=== PATIENT | female | born 1940 | race Caucasian/White ===

== ENCOUNTER 2018-10-30 15:28 | Emergency (ER) | payer MEDICARE, BC ==
--- NOTE | 2018-10-30 16:07 | ER Document Report ---
ED Medical Screen (RME) - General Chief Complaint: Flu Symptoms Stated Complaint: COUGH,CONGESTION Time Seen by Provider: 10/30/18 16:02 Primary Care Provider: JOSE MENDOZA MD [Primary Care Provider] - Follow up as needed Mode of Arrival: Ambulatory Information source: Patient Notes: This is a 78-year-old female with a history of diabetes, hypertension, coronary artery disease (CABG), possibly COPD. She has had cough, congestion and shortness of breath for the past 3 days. She was seen at [facility] and diagnosed with influenza. Because of concerns for pneumonia she was referred to the emergency room. She is noted to be hypertensive in triage. Her oxygen saturation is 94%. TRAVEL OUTSIDE OF THE [place] IN LAST 30 DAYS: No - Related Data Allergies/Adverse Reactions: prednisolone acetate [From Pred Forte] Allergy (Verified 10/30/18 15:30) REDDNESS OF EYE oxycodone HCl [From Percocet] Adverse Reaction (Verified 10/30/18 15:30) ITCHING Past Medical History - Past Medical History Cardiac Medical History: Reports: Hx Hypercholesterolemia, Hx Hypertension Denies: Hx Heart Attack Pulmonary Medical History: Denies: Hx Asthma, Hx Tuberculosis Neurological Medical History: Denies: Hx Cerebrovascular Accident, Hx Seizures Endocrine Medical History: Reports: Hx Diabetes Mellitus Type 2 Renal/ Medical History: Reports: Hx Kidney Stones GI Medical History: Denies: Hx Hepatitis, Hx Hiatal Hernia, Hx Ulcer Psychiatric Medical History: Reports: Hx Depression Infectious Medical History: Denies: Hx Hepatitis Past Surgical History: Reports: Hx Gynecologic Surgery - D/C, Hx Kidney (Renal Surgery) - stones, Hx Open Heart Surgery - triple bypass 08/26. Denies: Hx Mastectomy, Hx Pacemaker - Immunizations Hx Diphtheria, Pertussis, Tetanus Vaccination: - unk Physical Exam - Vital signs Vitals: Temp Pulse Resp BP Pulse Ox 98.4 F 77 18 184/56 H 94 10/30/18 15:36 10/30/18 15:36 10/30/18 15:36 10/30/18 15:36 10/30/18 15:36 Course - Vital Signs Vital signs: Temp Pulse Resp BP Pulse Ox 98.4 F 77 18 184/56 H 94 10/30/18 15:36 10/30/18 15:36 10/30/18 15:36 10/30/18 15:36 10/30/18 15:36 Doctor's Discharge - Discharge Referrals: JOSE MENDOZA MD [Primary Care Provider] - Follow up as needed
[2018-10-30] MEDS ORDERED: IPRATROPIUM/ALBUTEROL 0.5-2.5 MG/3 ML AMPUL NEB ONE ×2 (16:08→17:39)
[2018-10-30 16:56] LABS: ABSOLUTE BASOPHILS # (AUTO) 0.1 10^3/uL (0.0-0.2); ABSOLUTE EOSINOPHILS # (AUTO) 1.1 10^3/uL (0.0-0.6); ABSOLUTE MONOCYTES (AUTO) 0.6 10^3/uL (0.1-1.4); ABSOLUTE NEUT (AUTO) 6.9 10^3/uL (1.7-8.2); BASOPHILS % (AUTO) 1.5 % (0-2); EOSINOPHILS % (AUTO) 11.8 % (0-6); HEMATOCRIT 38.2 % (36.0-47.0); HEMOGLOBIN 12.8 g/dL (12.0-15.5); LYMPHOCYTES % (AUTO) 10.2 % (13-45); MEAN CORPUSCULAR HEMOGLOBIN 30.5 pg (27.0-33.4); MEAN CORPUSCULAR HGB CONC 33.6 g/dL (32.0-36.0); MEAN CORPUSCULAR VOLUME 91 fl (80-97); MONOCYTES % (AUTO) 5.8 % (3-13); RED BLOOD COUNT 4.21 10^6/uL (3.72-5.28); RED CELL DISTRIBUTION WIDTH 15.9 % (11.5-14.0); SEGMENTED NEUTROPHILS % (AUTO) 70.7 % (42-78); TOTAL CELLS COUNTED % (AUTO) 100 %; WHITE BLOOD COUNT 9.7 10^3/uL (4.0-10.5)
[2018-10-30 17:21] LABS: PLATELET COUNT 228 10^3/uL (150-450)
--- NOTE | 2018-10-30 17:26 | RADIOLOGY REPORT (SQ) ---
EXAM DESCRIPTION: CHEST 2 VIEWS COMPLETED DATE/TIME: 10/30/2018 5:05 pm REASON FOR STUDY: cough, sob COMPARISON: 11/06/2013 TECHNIQUE: Frontal and lateral radiographic views of the chest acquired. NUMBER OF VIEWS: Two view. LIMITATIONS: None. FINDINGS: LUNGS AND PLEURA: No pneumothorax. No consolidation or pleural effusion. Mild chronic lef t basilar scarring. MEDIASTINUM AND HILAR STRUCTURES: Stable. HEART AND VASCULAR STRUCTURES: Stable. BONES: No acute findings. HARDWARE: CABG. OTHER: No other significant finding. IMPRESSION: NO ACUTE FINDINGS. TECHNICAL DOCUMENTATION: JOB ID: [id number] [place]-72 2010 [employer]- All Rights Reserved Reading location - IP/workstation name: [employer]
--- NOTE | 2018-10-30 17:43 | ER Document Report ---
ED Flu Like - General Chief Complaint: Flu Symptoms Stated Complaint: COUGH,CONGESTION Time Seen by Provider: 10/30/18 16:02 Primary Care Provider: JOSE MENDOZA MD [Primary Care Provider] - Follow up in 3-5 days Mode of Arrival: Ambulatory TRAVEL OUTSIDE OF THE [place] IN LAST 30 DAYS: No - HPI Notes: Patient is a 78-year-old female that presents to the emergency department for chief complaint of influenza. Patient was in an urgent care facility today and was diagnosed with influenza A. They referred her to the ER for concern that she may have underlying pneumonia as well. Patient reports 4 days of cough and upper respiratory infection. She states everyone in her family has the flu as well. She denies taking her temperature at home but has felt sweats and chills. She reports a nonproductive cough but denies any dyspnea and shortness of breath. Patient denies any nausea, vomiting, abdominal pain and chest pain. She did not get an influenza vaccine this year. Past Medical History: COPD, diabetes, hypertension, CAD, CKD Past Surgical History: CABG Social History: Reviewed in chart Family History: Reviewed and noncontributory for presenting illness Allergies: Reviewed, see documented allergy list. REVIEW OF SYSTEMS: CONSTITUTIONAL : No fever chills diaphoresis EENT: No vision changes congestion No sore throat CARDIOVASCULAR: No chest pain No palpitations RESPIRATORY: No shortness of breath cough No difficulty breathing GASTROINTESTINAL: No abdominal pain No nausea No vomiting No diarrhea GENITOURINARY: No dysuria No hematuria No difficulty urinating MUSCULOSKELETAL: No back pain No leg pain No arm pain SKIN: No rashes No lesions LYMPHATIC: No swollen, enlarged glands. NEUROLOGICAL: No lightheadedness No headache No weakness No paresthesias PSYCHIATRIC: No anxiety No depression PHYSICAL EXAMINATION: Vital signs reviewed, nursing noted reviewed. GENERAL: Well-appearing, well-nourished and in no acute distress. HEAD: Atraumatic, normocephalic. EYES: Eyes appear normal, extraocular movements intact, sclera anicteric, conjunctiva are normal. ENT: nares patent, oropharynx clear without exudates. Moist mucous membranes. NECK: Normal range of motion, supple without lymphadenopathy LUNGS: Breath sounds have end expiratory wheezing bilaterally. No accessory muscle use or respiratory distress HEART: Regular rate and rhythm without murmurs ABDOMEN: Soft, nontender, normoactive bowel sounds. No rebound, guarding, or rigidity. No masses appreciated. EXTREMITIES: Nontender, good range of motion, no pitting or edema. NEUROLOGICAL: No focal neurological deficits. Moves all extremities spontaneously Motor and sensory grossly intact on exam. PSYCH: Normal mood, normal affect. SKIN: Warm, Dry, normal turgor, no rashes or lesions noted on exposed skin - Related Data Allergies/Adverse Reactions: prednisolone acetate [From Pred Forte] Allergy (Verified 10/30/18 15:30) REDDNESS OF EYE oxycodone HCl [From Percocet] Adverse Reaction (Verified 10/30/18 15:30) ITCHING Past Medical History - General Information source: Patient - Social History Smoking Status: Former Smoker Chew tobacco use (# tins/day): No Frequency of alcohol use: None Drug Abuse: None Family History: CAD, CVA Patient has suicidal ideation: No Patient has homicidal ideation: No - Past Medical History Cardiac Medical History: Reports: Hx Hypercholesterolemia, Hx Hypertension Denies: Hx Heart Attack Pulmonary Medical History: Denies: Hx Asthma, Hx Tuberculosis Neurological Medical History: Denies: Hx Cerebrovascular Accident, Hx Seizures Endocrine Medical History: Reports: Hx Diabetes Mellitus Type 2 Renal/ Medical History: Reports: Hx Kidney Stones. Denies: Hx Peritoneal Dialysis GI Medical History: Denies: Hx Hepatitis, Hx Hiatal Hernia, Hx Ulcer Psychiatric Medical History: Reports: Hx Depression Infectious Medical History: Denies: Hx Hepatitis Past Surgical History: Reports: Hx Gynecologic Surgery - D/C, Hx Kidney (Renal Surgery) - stones, Hx Open Heart Surgery - triple bypass 08/26. Denies: Hx Mastectomy, Hx Pacemaker - Immunizations Hx Diphtheria, Pertussis, Tetanus Vaccination: - unk Hx Pneumococcal Vaccination: 09/14/07 Physical Exam - Vital signs Vitals: Temp Pulse Resp BP Pulse Ox 98.4 F 77 18 184/56 H 94 10/30/18 15:36 10/30/18 15:36 10/30/18 15:36 10/30/18 15:36 10/30/18 15:36 Course - Re-evaluation Re-evalutation: 10/30/18 17:41 Vitals reviewed. Nursing notes reviewed. Patient is well-appearing and in no acute respiratory distress. She is oxygenating at 94% on room air. Patient has a diagnosis of COPD and family is telling me she is noncompliant with her home medications. She believes she has an albuterol inhaler but is not sure how old it is. She is supposed to be on Spiriva which she does not take. Patient's symptoms started 4 days ago when she is outside the window for Tamiflu. Patient will be given DuoNeb in the ED for her wheezing. X-ray shows no underlying pneumonia. She has no leukocytosis or sepsis. Currently awaiting BMP results. Laboratory 10/30/18 10/30/18 16:39 16:39 WBC 9.7 RBC 4.21 Hgb 12.8 Hct 38.2 MCV 91 MCH 30.5 MCHC 33.6 RDW 15.9 H Plt Count 228 Seg Neutrophils % 70.7 Lymphocytes % 10.2 L Monocytes % 5.8 Eosinophils % 11.8 H Basophils % 1.5 Absolute Neutrophils 6.9 Absolute Lymphocytes 1.0 Absolute Monocytes 0.6 Absolute Eosinophils 1.1 H Absolute Basophils 0.1 Sodium Cancelled Potassium Cancelled Chloride Cancelled Carbon Dioxide Cancelled Anion Gap Cancelled BUN Cancelled Creatinine Cancelled Est GFR ( Amer) Cancelled Est GFR (Non-Af Amer) Cancelled Glucose Cancelled Calcium Cancelled Total Bilirubin Cancelled Direct Bilirubin Cancelled Neonat Total Bilirubin Cancelled Neonat Direct Bilirubin Cancelled Neonat Indirect Bili Cancelled AST Cancelled ALT Cancelled Alkaline Phosphatase Cancelled Total Protein Cancelled Albumin Cancelled Chest X-Ray 10/30/18 16:07 IMPRESSION: NO ACUTE FINDINGS. 10/30/18 19:10 BMP shows mild elevation of LFTs but is otherwise unremarkable. Patient has remained hemodynamically stable. She did have symptomatic improvement. Patient will follow closely with her primary care doctor and is stable at discharge. Laboratory 10/30/18 10/30/18 10/30/18 16:39 16:39 18:00 WBC 9.7 RBC 4.21 Hgb 12.8 Hct 38.2 MCV 91 MCH 30.5 MCHC 33.6 RDW 15.9 H Plt Count 228 Seg Neutrophils % 70.7 Lymphocytes % 10.2 L Monocytes % 5.8 Eosinophils % 11.8 H Basophils % 1.5 Absolute Neutrophils 6.9 Absolute Lymphocytes 1.0 Absolute Monocytes 0.6 Absolute Eosinophils 1.1 H Absolute Basophils 0.1 Sodium Cancelled 146.3 H Potassium Cancelled 4.3 Chloride Cancelled 107 Carbon Dioxide Cancelled 27 Anion Gap Cancelled 12 BUN Cancelled 25 H Creatinine Cancelled 1.04 Est GFR ( Amer) Cancelled > 60 Est GFR (Non-Af Amer) Cancelled 51 L Glucose Cancelled 221 H Calcium Cancelled 10.0 Total Bilirubin Cancelled 0.5 Direct Bilirubin Cancelled 0.3 Neonat Total Bilirubin Cancelled Not Reportable Neonat Direct Bilirubin Cancelled Not Reportable Neonat Indirect Bili Cancelled Not Reportable AST Cancelled 77 H ALT Cancelled 74 H Alkaline Phosphatase Cancelled 95 Total Protein Cancelled 7.3 Albumin Cancelled 4.3 - Vital Signs Vital signs: Temp Pulse Resp BP Pulse Ox 98.0 F 72 16 154/75 H 96 10/30/18 18:57 10/30/18 18:57 10/30/18 18:57 10/30/18 18:57 10/30/18 18:57 - Laboratory Result Diagrams: 10/30/18 16:39 10/30/18 18:00 Laboratory results interpreted by me: 10/30/18 10/30/18 16:39 18:00 RDW 15.9 H Lymphocytes % 10.2 L Eosinophils % 11.8 H Absolute Eosinophils 1.1 H Sodium 146.3 H BUN 25 H Est GFR (Non-Af Amer) 51 L Glucose 221 H AST 77 H ALT 74 H Discharge - Discharge Clinical Impression: Influenza A Condition: Stable Disposition: HOME, SELF-CARE Instructions: Influenza ([facility]) [id number] Additional Instructions: Please return to the emergency department if you have any worsening, or concern of your symptoms. Please return to the emergency department if you develop chest pain, difficulty breathing, severe abdominal pain, or ongoing vomiting. Please follow-up with your primary care physician in 2-3 days and any other recommended physicians. If prescribed, take all medications as directed. If you have any questions or concerns do not hesitate to return the emergency department for evaluation. Use your albuterol inhaler with the spacer, 2 puffs every 4 hours as needed for cough Prescriptions: Albuterol Sulfate [Proair HFA Inhalation Aerosol 8.5 gm MDI] 2 puff IH Q4H PRN #1 mdi PRN Reason: Inhaler, Assist Devices [Space Chamber Plus] 1 each MC Q4 #1 spacer Referrals: JOSE MENDOZA MD [Primary Care Provider] - Follow up in 3-5 days
[2018-10-30 18:28] LABS: ALANINE AMINOTRANSFERASE 74 U/L (9-52); ALBUMIN 4.3 g/dL (3.5-5.0); ALKALINE PHOSPHATASE 95 U/L (38-126); ANION GAP 12 (5-19); ASPARTATE AMINO TRANSFERASE 77 U/L (14-36); BILIRUBIN,DIRECT 0.3 mg/dL (0.0-0.4); BILIRUBIN,TOTAL 0.5 mg/dL (0.2-1.3); BLOOD UREA NITROGEN 25 mg/dL (7-20); CARBON DIOXIDE 27 mmol/L (22-30); CHLORIDE 107 mmol/L (98-107); GLUCOSE 221 mg/dL (75-110); POTASSIUM 4.3 mmol/L (3.6-5.0); SODIUM 146.3 mmol/L (137-145); TOTAL PROTEIN 7.3 g/dL (6.3-8.2)
[2018-10-30 19:04] VITALS: BP 154/75
== END 2018-10-30 19:34 | disposition home or self-care (01) ==
LOC: ER 15:28
DX: J10.1 Influenza due to other identified influenza virus with other respiratory manifestations (principal); R05 Cough; R06.00 Dyspnea, unspecified; J44.9 Chronic obstructive pulmonary disease, unspecified; E11.9 Type 2 diabetes mellitus without complications; I10 Essential (primary) hypertension; I25.10 Atherosclerotic heart disease of native coronary artery without angina pectoris; N18.9 Chronic kidney disease, unspecified; Z87.891 Personal history of nicotine dependence
CPT/HCPCS: 94640 ×2; 99284; 36415; 85025; 80053; 71046; A9270; J7620

== ENCOUNTER 2018-11-13 11:25 | Emergency (ER) | payer MEDICARE, BC ==
[2018-11-13] MEDS ORDERED: NORMAL SALINE 1000 ML 1,000 ML IV ONE (11:40)
--- NOTE | 2018-11-13 11:41 | ER Document Report ---
ED Medical Screen (RME) - General Chief Complaint: Nausea Stated Complaint: BLOOD PRESSURE PROBLEM Time Seen by Provider: 11/13/18 11:39 Primary Care Provider: JOSE MENDOZA MD [Primary Care Provider] - Follow up as needed Mode of Arrival: Wheelchair Information source: Patient, Relative TRAVEL OUTSIDE OF THE [place] IN LAST 30 DAYS: No - HPI Patient complains to provider of: low BP, dizziness, nausea Onset: Yesterday - pt. with h/o HTN with c/o low BP, dizzinerss, nausea and weakness for the past day - Related Data Allergies/Adverse Reactions: prednisolone acetate [From Pred Forte] Allergy (Verified 10/30/18 15:30) REDDNESS OF EYE oxycodone HCl [From Percocet] Adverse Reaction (Verified 10/30/18 15:30) ITCHING Past Medical History - Past Medical History Cardiac Medical History: Reports: Hx Hypercholesterolemia, Hx Hypertension Denies: Hx Heart Attack Pulmonary Medical History: Denies: Hx Asthma, Hx Tuberculosis Neurological Medical History: Denies: Hx Cerebrovascular Accident, Hx Seizures Endocrine Medical History: Reports: Hx Diabetes Mellitus Type 2 Renal/ Medical History: Reports: Hx Kidney Stones. Denies: Hx Peritoneal Dialysis GI Medical History: Denies: Hx Hepatitis, Hx Hiatal Hernia, Hx Ulcer Psychiatric Medical History: Reports: Hx Depression Infectious Medical History: Denies: Hx Hepatitis Past Surgical History: Reports: Hx Gynecologic Surgery - D/C, Hx Kidney (Renal Surgery) - stones, Hx Open Heart Surgery - triple bypass 08/26. Denies: Hx Mastectomy, Hx Pacemaker - Immunizations Hx Diphtheria, Pertussis, Tetanus Vaccination: - unk Physical Exam - Vital signs Vitals: Temp Pulse Resp BP Pulse Ox 97.8 F 62 19 118/44 L 96 11/13/18 11:34 11/13/18 11:34 11/13/18 11:34 11/13/18 11:34 11/13/18 11:34 Course - Vital Signs Vital signs: Temp Pulse Resp BP Pulse Ox 97.8 F 62 19 118/44 L 96 11/13/18 11:34 11/13/18 11:34 11/13/18 11:34 11/13/18 11:34 11/13/18 11:34 Doctor's Discharge - Discharge Referrals: JOSE MENDOZA MD [Primary Care Provider] - Follow up as needed
[2018-11-13 12:40] LABS: ABSOLUTE BASOPHILS # (AUTO) 0.1 10^3/uL (0.0-0.2); ABSOLUTE EOSINOPHILS # (AUTO) 0.9 10^3/uL (0.0-0.6); ABSOLUTE LYMPHOCYTES (AUTO) 1.7 10^3/uL (0.5-4.7); ABSOLUTE MONOCYTES (AUTO) 0.4 10^3/uL (0.1-1.4); ABSOLUTE NEUT (AUTO) 5.2 10^3/uL (1.7-8.2); BASOPHILS % (AUTO) 1.2 % (0-2); EOSINOPHILS % (AUTO) 11.2 % (0-6); HEMATOCRIT 37.5 % (36.0-47.0); HEMOGLOBIN 12.7 g/dL (12.0-15.5); LYMPHOCYTES % (AUTO) 20.5 % (13-45); MEAN CORPUSCULAR HEMOGLOBIN 29.7 pg (27.0-33.4); MEAN CORPUSCULAR HGB CONC 33.7 g/dL (32.0-36.0); MEAN CORPUSCULAR VOLUME 88 fl (80-97); MONOCYTES % (AUTO) 5.2 % (3-13); PLATELET COUNT 366 10^3/uL (150-450); RED BLOOD COUNT 4.27 10^6/uL (3.72-5.28); RED CELL DISTRIBUTION WIDTH 15.7 % (11.5-14.0); SEGMENTED NEUTROPHILS % (AUTO) 61.9 % (42-78); TOTAL CELLS COUNTED % (AUTO) 100 %; WHITE BLOOD COUNT 8.4 10^3/uL (4.0-10.5)
--- NOTE | 2018-11-13 12:46 | ER Document Report ---
ED General - General Chief Complaint: Nausea Stated Complaint: BLOOD PRESSURE PROBLEM Time Seen by Provider: 11/13/18 11:39 Primary Care Provider: JOSE MENDOZA MD [Primary Care Provider] - Follow up in 3-5 days Mode of Arrival: Wheelchair Notes: This is a 78-year-old female patient emergency department chief complaint of feeling dizzy. Patient did not pass out. Did not have a syncopal episode. Denied any chest pain or shortness of breath. States that she often times feels this way. Is on multiple medications. Patient did not want to come here. She was urged to come here by her family members. Family members were concerned because she has not been feeling well. Was seen in the hospital ER a few weeks ago for a cough and generally not feeling well. The ER doctor prescribed an inhaler for her wheezing. The family members state that they were not happy that they did not get an antibiotic so they went to see her primary care doctor. Primary care doctor prescribed her Levaquin for her wheezing and cough. Patient states that she just finished Levaquin 2 days ago. Denies any other major symptoms at this time. TRAVEL OUTSIDE OF THE [place] IN LAST 30 DAYS: No - HPI Onset: Just prior to arrival Onset/Duration: Better Quality of pain: No pain Severity: None Pain Level: Denies Associated symptoms: Weakness - Related Data Allergies/Adverse Reactions: prednisolone acetate [From Pred Forte] Allergy (Verified 10/30/18 15:30) REDDNESS OF EYE oxycodone HCl [From Percocet] Adverse Reaction (Verified 10/30/18 15:30) ITCHING Past Medical History - General Information source: Patient, Relative - Social History Smoking Status: Unknown if Ever Smoked Chew tobacco use (# tins/day): No Frequency of alcohol use: None Drug Abuse: None Lives with: Family Family History: CAD, CVA Patient has suicidal ideation: No Patient has homicidal ideation: No - Past Medical History Cardiac Medical History: Reports: Hx Hypercholesterolemia, Hx Hypertension Denies: Hx Heart Attack Pulmonary Medical History: Denies: Hx Asthma, Hx Tuberculosis Neurological Medical History: Denies: Hx Cerebrovascular Accident, Hx Seizures Endocrine Medical History: Reports: Hx Diabetes Mellitus Type 2 Renal/ Medical History: Reports: Hx Kidney Stones. Denies: Hx Peritoneal Dialysis GI Medical History: Denies: Hx Hepatitis, Hx Hiatal Hernia, Hx Ulcer Psychiatric Medical History: Reports: Hx Depression Infectious Medical History: Denies: Hx Hepatitis Past Surgical History: Reports: Hx Gynecologic Surgery - D/C, Hx Kidney (Renal Surgery) - stones, Hx Open Heart Surgery - triple bypass 08/26. Denies: Hx Mastectomy, Hx Pacemaker - Immunizations Hx Diphtheria, Pertussis, Tetanus Vaccination: - unk Hx Pneumococcal Vaccination: 09/14/07 Review of Systems - Review of Systems Notes: Constitutional: denies: Chills, Diaphoresis, Fever, Malaise, +Weakness EENT: denies: Eye discharge, Blurred vision, Tearing, Double vision, Nose congestion, Nose discharge, Throat swelling, Mouth pain Cardiovascular: denies: Palpitations, Heart racing, Orthopnea, Dyspnea, Chest pain Respiratory: denies: Cough, Hurts to breathe, Wheezing, Shortness of breath Gastrointestinal: denies: Abdominal pain, Diarrhea, Nausea, Vomiting, Black stools, bright red blood in stool Genitourinary: denies: Burning, Dysuria, Discharge, Frequency, Flank pain, Hematuria Musculoskeletal: denies: Joint pain, Joint swelling, Muscle pain, Muscle stiffness, back pain Hematologic/Lymphatic: denies: Anemia, Easy bleeding, Easy bruising, Blood clots Neurological/Psychological: denies: Confusion, Dementia, Depression, Loss of consciousness. Positive for dizziness Skin: No lesions, no masses, no skin breakdown, no abscesses Physical Exam - Vital signs Vitals: Temp Pulse Resp BP Pulse Ox 97.8 F 62 19 118/44 L 96 11/13/18 11:34 11/13/18 11:34 11/13/18 11:34 11/13/18 11:34 11/13/18 11:34 Interpretation: Normal - General General appearance: Appears well, Alert - HEENT Head: Normocephalic, Atraumatic Eyes: Normal Pupils: PERRL - Respiratory Respiratory status: No respiratory distress Chest status: Nontender Breath sounds: Other - Faint crackles right base Chest palpation: Normal - Cardiovascular Rhythm: Regular Heart sounds: Normal auscultation Murmur: No - Abdominal Inspection: Normal Distension: No distension Bowel sounds: Normal Tenderness: Nontender Organomegaly: No organomegaly - Back Back: Normal, Nontender - Extremities General upper extremity: Normal inspection, Nontender, Normal color, Normal ROM, Normal temperature General lower extremity: Normal inspection, Nontender, Edema - Trace bilateral lower extremity edema, Normal color, Normal ROM, Normal temperature, Normal weight bearing. No: Miguel's sign - Neurological Neuro grossly intact: Yes Cognition: Normal Orientation: AAOx4 Masood Coma Scale Eye Opening: Spontaneous [place] Coma Scale Verbal: Oriented [place] Coma Scale Motor: Obeys Commands [place] Coma Scale Total: 15 Speech: Normal Motor strength normal: LUE, RUE, LLE, RLE Sensory: Normal - Psychological Associated symptoms: Normal affect, Normal mood - Skin Skin Temperature: Warm Skin Moisture: Dry Skin Color: Normal Course - Re-evaluation Re-evalutation: 11/13/18 18:33 Laboratory 11/13/18 11/13/18 11/13/18 12:01 12:01 12:01 WBC 8.4 RBC 4.27 Hgb 12.7 Hct 37.5 MCV 88 MCH 29.7 MCHC 33.7 RDW 15.7 H Plt Count 366 Seg Neutrophils % 61.9 Lymphocytes % 20.5 Monocytes % 5.2 Eosinophils % 11.2 H Basophils % 1.2 Absolute Neutrophils 5.2 Absolute Lymphocytes 1.7 Absolute Monocytes 0.4 Absolute Eosinophils 0.9 H Absolute Basophils 0.1 Sodium 144.3 Potassium 4.7 Chloride 103 Carbon Dioxide 30 Anion Gap 11 BUN 38 H Creatinine 1.31 H Est GFR ( Amer) 48 L Est GFR (Non-Af Amer) 39 L Glucose 192 H Calcium 10.5 H Total Bilirubin 0.5 Direct Bilirubin 0.3 Neonat Total Bilirubin Not Reportable Neonat Direct Bilirubin Not Reportable Neonat Indirect Bili Not Reportable AST 37 H ALT 31 Alkaline Phosphatase 83 Creatine Kinase 58 CK-MB (CK-2) 1.33 Troponin I < 0.012 Total Protein 7.2 Albumin 4.2 Urine Color Urine Appearance Urine pH Ur Specific Fossil Urine Protein Urine Glucose (UA) Urine Ketones Urine Blood Urine Nitrite Urine Bilirubin Urine Urobilinogen Ur Leukocyte Esterase Urine WBC (Auto) Urine RBC (Auto) Squamous Epi Cells Auto Urine Mucus (Auto) Urine Ascorbic Acid 11/13/18 14:27 WBC RBC Hgb Hct MCV MCH MCHC RDW Plt Count Seg Neutrophils % Lymphocytes % Monocytes % Eosinophils % Basophils % Absolute Neutrophils Absolute Lymphocytes Absolute Monocytes Absolute Eosinophils Absolute Basophils Sodium Potassium Chloride Carbon Dioxide Anion Gap BUN Creatinine Est GFR ( Amer) Est GFR (Non-Af Amer) Glucose Calcium Total Bilirubin Direct Bilirubin Neonat Total Bilirubin Neonat Direct Bilirubin Neonat Indirect Bili AST ALT Alkaline Phosphatase Creatine Kinase CK-MB (CK-2) Troponin I Total Protein Albumin Urine Color STRAW Urine Appearance CLEAR Urine pH 6.0 Ur Specific [place] 1.009 Urine Protein NEGATIVE Urine Glucose (UA) NEGATIVE Urine Ketones NEGATIVE Urine Blood NEGATIVE Urine Nitrite NEGATIVE Urine Bilirubin NEGATIVE Urine Urobilinogen NEGATIVE Ur Leukocyte Esterase NEGATIVE Urine WBC (Auto) 1 Urine RBC (Auto) 0 Squamous Epi Cells Auto <1 Urine Mucus (Auto) RARE Urine Ascorbic Acid NEGATIVE Chest X-Ray 11/13/18 15:09 IMPRESSION: MILD ATELECTASIS/ SCARRING IN THE LEFT LUNG BASE. NO ACUTE RADIOGRAPHIC FINDING IN THE CHEST. No evidence of UTI. Labs fairly unremarkable. No evidence of pneumonia. No evidence of significant heart failure. Patient denies any chest pain. States she feels much better at this time. I have advised that she follow-up with her regular doctor and discuss whether not she needs to be on all of her medications. Patient states that she does not have chronic angina so it is possible that the isosorbide could be discontinued. This time will discharge in stable condition. - Vital Signs Vital signs: Temp Pulse Resp BP Pulse Ox 97.9 F 62 12 162/56 H 93 11/13/18 16:02 11/13/18 11:34 11/13/18 16:02 11/13/18 16:02 11/13/18 16:02 - Laboratory Result Diagrams: 11/13/18 12:01 11/13/18 12:01 Laboratory results interpreted by me: 11/13/18 11/13/18 12:01 12:01 RDW 15.7 H Eosinophils % 11.2 H Absolute Eosinophils 0.9 H BUN 38 H Creatinine 1.31 H Est GFR ( Amer) 48 L Est GFR (Non-Af Amer) 39 L Glucose 192 H Calcium 10.5 H AST 37 H - EKG Interpretation by Me EKG shows normal: Sinus rhythm, Flanagan, Intervals, QRS Complexes. abnormal: ST-T Waves - Patient has some lateral T wave inversion. Unchanged from prior EKG. No ST segment elevation or depression. Discharge - Discharge Clinical Impression: Dizziness Condition: Good Disposition: HOME, SELF-CARE Instructions: Dizziness ([facility]) Additional Instructions: The labs and x-rays look okay today. I find no significant cause for your dizziness. In the event that you develop chest pain, shortness of breath or any worsening symptoms please return. Of note, there was a potential that your blood pressure was low. It may help you to talk to the doctor that you were seen about discontinuing some of your medications. Until then, please stay on all of your medications as prescribed by your doctor. Referrals: JOSE MENDOZA MD [Primary Care Provider] - Follow up in 3-5 days
[2018-11-13 12:53] LABS: ALANINE AMINOTRANSFERASE 31 U/L (9-52); ALBUMIN 4.2 g/dL (3.5-5.0); ALKALINE PHOSPHATASE 83 U/L (38-126); ANION GAP 11 (5-19); ASPARTATE AMINO TRANSFERASE 37 U/L (14-36); BILIRUBIN,DIRECT 0.3 mg/dL (0.0-0.4); BILIRUBIN,TOTAL 0.5 mg/dL (0.2-1.3); BLOOD UREA NITROGEN 38 mg/dL (7-20); CALCIUM 10.5 mg/dL (8.4-10.2); CARBON DIOXIDE 30 mmol/L (22-30); CHLORIDE 103 mmol/L (98-107); CREATINE KINASE 58 U/L (30-135); GLUCOSE 192 mg/dL (75-110); POTASSIUM 4.7 mmol/L (3.6-5.0); SODIUM 144.3 mmol/L (137-145); TOTAL PROTEIN 7.2 g/dL (6.3-8.2)
[2018-11-13 13:05] LABS: CREATINE KINASE MB 1.33 ng/mL (<4.55)
[2018-11-13 13:06] LABS: TROPONIN I < 0.012 ng/mL
[2018-11-13 14:52] LABS: APPEARANCE,URINE CLEAR; BILIRUBIN,URINE NEGATIVE (NEGATIVE); COLOR,URINE STRAW; GLUCOSE, URINE NEGATIVE (NEGATIVE); KETONES,URINE NEGATIVE (NEGATIVE); LEUKOCYTE ESTERASE,URINE NEGATIVE (NEGATIVE); NITRITE,URINE NEGATIVE (NEGATIVE); PROTEIN,URINE NEGATIVE (NEGATIVE); URINE SPECIFIC GRAVITY 1.009; UROBILINOGEN,URINE NEGATIVE mg/dL (<2.0)
--- NOTE | 2018-11-13 15:34 | RADIOLOGY REPORT (SQ) ---
EXAM DESCRIPTION: CHEST 2 VIEWS COMPLETED DATE/TIME: 11/13/2018 3:20 pm REASON FOR STUDY: Crackles right base COMPARISON: 10/30/2018. EXAM PARAMETERS: NUMBER OF VIEWS: two views TECHNIQUE: Digital Frontal and Lateral radiographic views of the chest acquired. RADIATION DOSE: NA LIMITATIONS: none FINDINGS: LUNGS AND PLEURA: Mild atelectasis/scarring in the left lung base. No focal infiltrates, masses or pneumothorax. No pleural effusion. MEDIASTINUM AND HILAR STRUCTURES: No masses or contour abnormalities. HEART AND VASCULAR STRUCTURES: Heart normal size. No evidence for failure. BONES: No acute findings. HARDWARE: Sternotomy wires. OTHER: No other significant finding. IMPRESSION: MILD ATELECTASIS/ SCARRING IN THE LEFT LUNG BASE. NO ACUTE RADIOGRAPHIC FINDING IN THE CHEST. TECHNICAL DOCUMENTATION: JOB ID: [id number] [employer]- All Rights Reserved Reading location - IP/workstation name: [email or web address]
--- NOTE | 2018-11-13 16:31 | EKG REPORT ---
SEVERITY:- ABNORMAL ECG - SINUS RHYTHM ABNORMAL T, CONSIDER ISCHEMIA, LATERAL LEADS : Confirmed by: Wen Bryant 13-Nov-2018 16:31:24
[2018-11-13 17:03] VITALS: BP 162/56
== END 2018-11-13 17:03 | disposition home or self-care (01) ==
LOC: ER 11:25
DX: R42 Dizziness and giddiness (principal); I10 Essential (primary) hypertension; E11.9 Type 2 diabetes mellitus without complications; R94.31 Abnormal electrocardiogram [ECG] [EKG]; J98.11 Atelectasis; Z79.899 Other long term (current) drug therapy
CPT/HCPCS: 93005; 99284; 96360; 36415; 82553; 82550; 85025; 80053; 81001; 84484; 71046; 93010; J7030